=== PATIENT | female | born 1950 | race Native Hawaiian/Other Pacific Islander ===

== ENCOUNTER 2018-07-12 10:59 | Outpatient (CLI) | payer BC | END 2018-07-12 22:19 | disposition home or self-care (01) | LOC: RAD 10:59 | DX: M25.561 Pain in right knee (principal) ==

== ENCOUNTER 2019-10-18 07:22 | Outpatient (CLI) | payer BC ==
[2019-10-18 08:57] LABS: POTASSIUM 4.1 mmol/L (3.6-5.2)
[2019-10-18 09:12] LABS: PLATELET COUNT 252 K/uL (152-353)
== END 2019-10-18 20:48 | disposition home or self-care (01) ==
LOC: LAB 07:22
PROVIDERS: Specialist
DX: D47.2 Monoclonal gammopathy (principal); R79.89 Other specified abnormal findings of blood chemistry; Z79.899 Other long term (current) drug therapy; N18.3 Chronic kidney disease, stage 3 (moderate)
CPT/HCPCS: 36415; 80053; 82784; 82785; 83883; 84165; 85027; 86335

== ENCOUNTER 2019-11-20 09:16 | Outpatient (CLI) | payer BC | END 2019-11-20 22:39 | disposition home or self-care (01) | LOC: RESP 09:16 | DX: R94.31 Abnormal electrocardiogram [ECG] [EKG] (principal) | CPT/HCPCS: 93306 ==

== ENCOUNTER 2021-08-24 10:35 | Outpatient (CLI) | payer BC | END 2021-08-24 22:36 | disposition home or self-care (01) | LOC: RAD 10:35 | PROVIDERS: ATTEND Registered Nurse | DX: J20.8 Acute bronchitis due to other specified organisms (principal) ==

== ENCOUNTER 2023-03-08 08:17 | Outpatient (CLI) | payer BC | END 2023-03-08 20:45 | disposition home or self-care (01) | LOC: US 08:17 | PROVIDERS: ATTEND Internal Medicine | DX: R10.9 Unspecified abdominal pain (principal) ==